=== PATIENT | female | born 1935 | race Caucasian/White ===

== ENCOUNTER → 2016-11-26 | Outpatient (CLI) | payer OTHER, MEDICARE | LOC: LAB 10:13 | PROVIDERS: ATTEND Physician Assistant | DX: E55.9 Vitamin D deficiency, unspecified (principal) | CPT/HCPCS: 82306 ==

== ENCOUNTER → 2017-04-27 | Outpatient (CLI) | payer OTHER, MEDICARE ==
--- NOTE | 2017-04-27 12:56 | DI ---
US ABDOMEN LIMITED,04/27/2017 7:55 AM: Clinical History: Palpable area just superior to the umbilicus Previous Exam: CT abdomen without contrast performed at April 06, 2010 Findings: Multiple grayscale and color Doppler sonographic images are obtained of the anterior abdominal wall j ust superior to the umbilicus. There is normal subcutaneous fat without cystic or solid mass. The region of the umbilicus is not well evaluated but is grossly normal. Impression: No solid or cystic mass in the subcutaneous fat in the area of concern.
== END ==
LOC: US 07:52
PROVIDERS: ATTEND Nurse Practitioner Family
DX: R10.84 Generalized abdominal pain (principal); K42.9 Umbilical hernia without obstruction or gangrene
CPT/HCPCS: 76705

== ENCOUNTER → 2017-04-29 | Outpatient (CLI) | payer OTHER, MEDICARE ==
--- NOTE | 2017-04-29 10:28 | DI ---
CT ABDOMEN W/O CONTRAST,04/29/2017 9:28 AM: Clinical History: Umbilical hernia without obstruction and without gangrene. Previous Exam: None at this facility. Findings: Multiple helically acquired CT images are obtained through the abdomen without contrast, and demonstr ate a small hiatal hernia. A few coronary artery calcifications are seen. The adrenals, kidneys, spleen, liver and gallbladder are unremarkable. The pancreas is also unremarkable. There is a very small umbilical hernia which is subcentimeter in size. There is a large amount of dried stool throughout the colon. A few peripheral vascular calcifications are seen. Diffuse degenerative changes are seen of the lower lumbar spine worst at the L4/5 and L5/S1 levels. Impression: 1. Subcentimeter fat-containing umbilical hernia. 2. Large amount of stool throughout the colon.
== END ==
LOC: CT 09:25
PROVIDERS: ATTEND Nurse Practitioner Family
DX: K42.9 Umbilical hernia without obstruction or gangrene (principal); R10.84 Generalized abdominal pain
CPT/HCPCS: 74150